=== PATIENT | female | born 1940 | race Caucasian/White ===

== ENCOUNTER 2019-03-02 13:49 | Inpatient (IN) | payer MEDICARE, MEDICAID ==
[~2019-03-02] VITALS: Ht 157.5 cm; Wt 79.9 kg
[2019-03-02 15:49] VITALS: BP 118/55
[2019-03-02] MEDS ORDERED: DEXTROSE 50%, 50ML SYRINGE IVPush PRN (17:00)
[2019-03-02] MEDS ORDERED: IBUPROFEN 600 MG TABLET PO PRN (17:00)
[2019-03-02] MEDS ORDERED: DEXTROSE 4 GM TAB.CHEW PO PRN (17:00)
[2019-03-02] MEDS ORDERED: GLUCAGON 1 MG IM PRN (17:00)
[2019-03-02] MEDS ORDERED: DOCUSATE 100 MG CAPSULE PO PRN (17:00)
[2019-03-02] MEDS ORDERED: ENALAPRILAT 1.25 MG/ML, 2ML IVPush PRN (17:00)
[2019-03-02] MEDS: PLEASE ENTER HEIGHT AND WEIGHT MC SCH ×2 (17:30→20:29)
[2019-03-02] MEDS: metFORMIN 500 MG TABLET PO SCH (17:41)
[2019-03-02] MEDS: PROPRANOLOL 10 MG TABLET PO SCH (17:41)
[2019-03-02 17:50] LABS: ALBUMIN 2.8 g/dL (3.4-5.0); ANION GAP 10 mmol/L (5-15); CALCIUM 8.3 mg/dL (8.5-10.1); CHLORIDE 110 mmol/L (98-107)
[2019-03-02 17:54] LABS: ALANINE AMINOTRANSFERASE 32 U/L (12-78); ALKALINE PHOSPHATASE 170 U/L (45-117); BILIRUBIN,TOTAL 2.3 mg/dL (0.2-1.0); CREATININE 1.04 mg/dL (0.55-1.02); TOTAL PROTEIN 6.2 g/dL (6.4-8.2)
[2019-03-02 19:13] LABS: MEAN CORPUSCULAR HGB CONC 31.6 g/dL (32.4-35.8); MEAN CORPUSCULAR VOLUME 75.8 fL (80-100); RED BLOOD COUNT 3.09 x10^6/uL (3.82-5.3); RED CELL DISTRIBUTION WIDTH 18.4 % (9.6-15.2)
[2019-03-02 19:23] LABS: INTERNATIONAL NORMALIZED RATIO 1.11 (0.93-1.1); PROTHROMBIN TIME 11.6 Seconds (9.6-11.5)
[2019-03-02 19:50] LABS: MEAN PLATELET VOLUME 12.2 fL (7.4-10.4); PLATELET COUNT 81 x10^3/uL (130-400)
[2019-03-02 20:03] LABS: MD YES
[2019-03-02 20:22] VITALS: BP 100/55
[2019-03-02] MEDS: SODIUM CHLORIDE FLUSH 10ML SYR IVF SCH (20:49)
[2019-03-02 20:52] LABS: EOS#(MANUAL) 0.05 x10^3/uL (0.0-0.4); EOS% (MANUAL) 1 % (1-7); LYMPH#(MANUAL) 0.42 x10^3/uL (1-3.4); LYMPHS% (MANUAL) 8 % (22-44); MONOS#(MANUAL) 0.42 x10^3/uL (0.3-2.7); MONOS% (MANUAL) 8 % (2-9); SEGS% (MANUAL) 83 % (42-75)
[2019-03-02 20:53] LABS: HYPOCHROMIA 1+; MICROCYTOSIS 1+; OVALOCYTES 1+; POLYCHROMASIA 1+
[2019-03-02 20:56] LABS: <PLATELET ESTIMATE> DECREASED; LARGE PLATELETS 1+; TARGET CELLS 1+
[2019-03-02] MEDS: INSULIN GLARGINE 100 UNITS/ML, PEN SQ-INSULIN SCH (22:02)
[2019-03-03] VITALS (9 sets, daily range): BP systolic 58–138; BP diastolic 46–74
[2019-03-03 06:27] LABS: CHLORIDE 114 mmol/L (98-107)
[2019-03-03] MEDS: PROPRANOLOL 10 MG TABLET PO SCH ×2 (06:27→16:45)
[2019-03-03 06:38] LABS: ALANINE AMINOTRANSFERASE 25 U/L (12-78); ALBUMIN 2.5 g/dL (3.4-5.0); ALKALINE PHOSPHATASE 130 U/L (45-117); ANION GAP 9 mmol/L (5-15); BILIRUBIN,TOTAL 1.6 mg/dL (0.2-1.0); CALCIUM 8.2 mg/dL (8.5-10.1); CREATININE 0.98 mg/dL (0.55-1.02); TOTAL PROTEIN 5.5 g/dL (6.4-8.2)
[2019-03-03 06:48] LABS: MEAN CORPUSCULAR HEMOGLOBIN 24.3 pg (27.0-34.8); MEAN CORPUSCULAR HGB CONC 32.3 g/dL (32.4-35.8); MEAN CORPUSCULAR VOLUME 75.2 fL (80-100); RED BLOOD COUNT 2.82 x10^6/uL (3.82-5.3); RED CELL DISTRIBUTION WIDTH 18.4 % (9.6-15.2)
[2019-03-03 07:26] LABS: CULTURE INDICATED? YES; MICROSCOPIC INDICATED
[2019-03-03 07:32] LABS: MEAN PLATELET VOLUME 12.7 fL (7.4-10.4); PLATELET COUNT 61 x10^3/uL (130-400)
[2019-03-03 07:36] LABS: BASOPHILS # (AUTO) 0.01 x10^3/uL (0-0.1); BASOPHILS % (AUTO) 0 % (0-1); EOSINOPHILS # (AUTO) 0.08 x10^3/uL (0-0.4); EOSINOPHILS % (AUTO) 2 % (1-7); LYMPHOCYTES # (AUTO) 0.67 x10^3/uL (1-3.4); LYMPHOCYTES % (AUTO) 21 % (22-44); MD SCAN; MONOCYTES # (AUTO) 0.38 x10^3/uL (0.2-0.8); MONOCYTES % (AUTO) 12 % (2-9); NEUTROPHILS # (AUTO) 2.14 x10^3/uL (1.8-6.8); NEUTROPHILS % (AUTO) 65 % (42-75)
[2019-03-03] MEDS: metFORMIN 500 MG TABLET PO SCH ×2 (07:38→16:45)
[2019-03-03] MEDS: PLEASE ENTER HEIGHT AND WEIGHT MC SCH (07:39)
[2019-03-03] MEDS: SODIUM CHLORIDE FLUSH 10ML SYR IVF SCH ×2 (07:39→20:37)
[2019-03-03] MEDS: HYDROCHLOROTHIAZIDE 12.5 MG CAPSULE PO SCH (07:39)
[2019-03-03] MEDS: CEFDINIR 300 MG CAPSULE PO SCH ×2 (10:30→20:36)
[2019-03-03] MEDS: POTASSIUM CHLORIDE 10% 20 MEQ/15 ML UDC PO SCH ×2 (10:30→20:37)
[2019-03-03] MEDS: INSULIN GLARGINE 100 UNITS/ML, PEN SQ-INSULIN SCH ×2 (10:59→20:36)
[2019-03-03] MEDS ORDERED: LIDOCAINE-MPF 1%, 5ML ONE (15:44)
[2019-03-03 16:36] LABS: OCCULT BLOOD POSITIVE (NEGATIVE)
[2019-03-04 00:20] VITALS: BP 101/62
[2019-03-04 05:27] VITALS: BP 117/62
[2019-03-04] MEDS: PROPRANOLOL 10 MG TABLET PO SCH ×2 (05:29→16:52)
[2019-03-04 05:46] LABS: MEAN CORPUSCULAR HEMOGLOBIN 24.3 pg (27.0-34.8); MEAN CORPUSCULAR HGB CONC 31.5 g/dL (32.4-35.8); MEAN CORPUSCULAR VOLUME 77.3 fL (80-100); PLATELET COUNT 54 x10^3/uL (130-400); RED BLOOD COUNT 2.99 x10^6/uL (3.82-5.3); RED CELL DISTRIBUTION WIDTH 18.6 % (9.6-15.2)
[2019-03-04 05:59] LABS: ALBUMIN 2.3 g/dL (3.4-5.0); ANION GAP 7 mmol/L (5-15); CALCIUM 8.1 mg/dL (8.5-10.1); CHLORIDE 114 mmol/L (98-107)
[2019-03-04 06:02] LABS: ALANINE AMINOTRANSFERASE 24 U/L (12-78); ALKALINE PHOSPHATASE 128 U/L (45-117); BILIRUBIN,TOTAL 1.6 mg/dL (0.2-1.0); CREATININE 0.93 mg/dL (0.55-1.02); TOTAL PROTEIN 5.1 g/dL (6.4-8.2)
[2019-03-04 06:23] LABS: BASOPHILS # (AUTO) 0.01 x10^3/uL (0-0.1); BASOPHILS % (AUTO) 0 % (0-1); EOSINOPHILS # (AUTO) 0.06 x10^3/uL (0-0.4); EOSINOPHILS % (AUTO) 3 % (1-7); LYMPHOCYTES # (AUTO) 0.66 x10^3/uL (1-3.4); LYMPHOCYTES % (AUTO) 28 % (22-44); MD SCAN; MONOCYTES # (AUTO) 0.26 x10^3/uL (0.2-0.8); MONOCYTES % (AUTO) 11 % (2-9); NEUTROPHILS # (AUTO) 1.33 x10^3/uL (1.8-6.8); NEUTROPHILS % (AUTO) 57 % (42-75)
[2019-03-04 08:05] VITALS: BP 149/78
[2019-03-04] MEDS: POTASSIUM CHLORIDE 10% 20 MEQ/15 ML UDC PO SCH ×2 (08:20→21:54)
[2019-03-04] MEDS: HYDROCHLOROTHIAZIDE 12.5 MG CAPSULE PO SCH (08:20)
[2019-03-04] MEDS: metFORMIN 500 MG TABLET PO SCH ×2 (08:21→16:53)
[2019-03-04] MEDS: INSULIN GLARGINE 100 UNITS/ML, PEN SQ-INSULIN SCH ×2 (08:21→21:00)
[2019-03-04] MEDS: CEFDINIR 300 MG CAPSULE PO SCH ×2 (08:21→21:54)
[2019-03-04] MEDS: SODIUM CHLORIDE FLUSH 10ML SYR IVF SCH ×2 (08:22→21:57)
[2019-03-04] MEDS ORDERED: GOLYTELY 4,000ML ORAL.SOL PO ONE ×2 (10:00→20:00)
[2019-03-04 12:24] VITALS: BP 131/51
[2019-03-04 16:50] VITALS: BP 119/87
[2019-03-04 18:33] VITALS: BP 131/48
[2019-03-04] MEDS ORDERED: INSULIN GLARGINE 100 UNITS/ML, PEN SQ-INSULIN ONE (22:00)
[2019-03-05] VITALS (8 sets, daily range): BP systolic 115–137; BP diastolic 46–76
[2019-03-05] MEDS: PROPRANOLOL 10 MG TABLET PO SCH ×2 (05:43→17:09)
[2019-03-05 05:58] LABS: CHLORIDE 112 mmol/L (98-107)
[2019-03-05 06:30] LABS: MEAN CORPUSCULAR HEMOGLOBIN 24.9 pg (27.0-34.8); MEAN CORPUSCULAR HGB CONC 32.1 g/dL (32.4-35.8); MEAN CORPUSCULAR VOLUME 77.7 fL (80-100); MEAN PLATELET VOLUME 11.5 fL (7.4-10.4); PLATELET COUNT 51 x10^3/uL (130-400); RED BLOOD COUNT 3.48 x10^6/uL (3.82-5.3); RED CELL DISTRIBUTION WIDTH 18.8 % (9.6-15.2)
[2019-03-05 06:32] LABS: ALANINE AMINOTRANSFERASE 30 U/L (12-78); ALBUMIN 2.8 g/dL (3.4-5.0); ALKALINE PHOSPHATASE 125 U/L (45-117); ANION GAP 7 mmol/L (5-15); BILIRUBIN,TOTAL 2.1 mg/dL (0.2-1.0); CALCIUM 8.4 mg/dL (8.5-10.1); CREATININE 0.91 mg/dL (0.55-1.02); TOTAL PROTEIN 5.7 g/dL (6.4-8.2)
[2019-03-05 07:07] LABS: BASOPHILS # (AUTO) 0.01 x10^3/uL (0-0.1); BASOPHILS % (AUTO) 0 % (0-1); EOSINOPHILS # (AUTO) 0.12 x10^3/uL (0-0.4); EOSINOPHILS % (AUTO) 4 % (1-7); LYMPHOCYTES # (AUTO) 0.81 x10^3/uL (1-3.4); LYMPHOCYTES % (AUTO) 25 % (22-44); MD SCAN; MONOCYTES # (AUTO) 0.26 x10^3/uL (0.2-0.8); MONOCYTES % (AUTO) 8 % (2-9); NEUTROPHILS # (AUTO) 1.98 x10^3/uL (1.8-6.8); NEUTROPHILS % (AUTO) 62 % (42-75)
[2019-03-05] MEDS: metFORMIN 500 MG TABLET PO SCH ×2 (07:11→17:10)
[2019-03-05] MEDS: INSULIN GLARGINE 100 UNITS/ML, PEN SQ-INSULIN SCH ×3 (07:11→20:51)
[2019-03-05] MEDS: HYDROCHLOROTHIAZIDE 12.5 MG CAPSULE PO SCH (07:11)
[2019-03-05] MEDS: CEFDINIR 300 MG CAPSULE PO SCH ×2 (07:11→20:50)
[2019-03-05] MEDS ORDERED: PROPOFOL 10 MG/ML, 20ML ONE (08:02)
[2019-03-05] MEDS: SODIUM CHLORIDE FLUSH 10ML SYR IVF SCH ×2 (09:00→20:51)
[2019-03-05] MEDS ORDERED: ONDANSETRON 2MG/ML, 2ML IV PRN (09:30)
[2019-03-05] MEDS ORDERED: ONDANSETRON ODT 8 MG PO PRN (09:30)
[2019-03-05] MEDS ORDERED: FENTANYL PF 100 MCG/2ML IV PRN (09:30)
[2019-03-05] MEDS ORDERED: OXYcodone 5 MG/5 ML ORAL.SOL UDC PO PRN (09:30)
[2019-03-06 01:32] VITALS: BP 114/59
[2019-03-06] MEDS: PROPRANOLOL 10 MG TABLET PO SCH (05:33)
[2019-03-06 06:13] LABS: MEAN CORPUSCULAR HEMOGLOBIN 24.8 pg (27.0-34.8); MEAN CORPUSCULAR HGB CONC 31.8 g/dL (32.4-35.8); MEAN PLATELET VOLUME 11.5 fL (7.4-10.4); PLATELET COUNT 58 x10^3/uL (130-400); RED BLOOD COUNT 3.14 x10^6/uL (3.82-5.3)
[2019-03-06 06:15] LABS: ALANINE AMINOTRANSFERASE 29 U/L (12-78); ALBUMIN 2.4 g/dL (3.4-5.0); ANION GAP 6 mmol/L (5-15); CALCIUM 7.8 mg/dL (8.5-10.1); CHLORIDE 112 mmol/L (98-107); CREATININE 0.89 mg/dL (0.55-1.02)
[2019-03-06 06:18] LABS: ALKALINE PHOSPHATASE 120 U/L (45-117); BILIRUBIN,TOTAL 1.3 mg/dL (0.2-1.0); TOTAL PROTEIN 5.1 g/dL (6.4-8.2)
[2019-03-06 06:41] LABS: BASOPHILS # (AUTO) 0.01 x10^3/uL (0-0.1); BASOPHILS % (AUTO) 1 % (0-1); EOSINOPHILS # (AUTO) 0.05 x10^3/uL (0-0.4); EOSINOPHILS % (AUTO) 2 % (1-7); LYMPHOCYTES # (AUTO) 0.57 x10^3/uL (1-3.4); LYMPHOCYTES % (AUTO) 23 % (22-44); MD MORPH REVIEW ONLY; MONOCYTES # (AUTO) 0.33 x10^3/uL (0.2-0.8); MONOCYTES % (AUTO) 13 % (2-9); NEUTROPHILS # (AUTO) 1.52 x10^3/uL (1.8-6.8); NEUTROPHILS % (AUTO) 61 % (42-75)
[2019-03-06 06:42] LABS: <PLATELET ESTIMATE> DECREASED; ANISOCYTOSIS 1+; HYPOCHROMIA 1+; LARGE PLATELETS 1+; MICROCYTOSIS 1+; OVALOCYTES 1+; POLYCHROMASIA 1+
[2019-03-06] MEDS ORDERED: OXYcodone 5 MG/5 ML ORAL.SOL UDC PO PRN (07:00)
[2019-03-06] MEDS: CEFDINIR 300 MG CAPSULE PO SCH ×2 (08:13→20:44)
[2019-03-06] MEDS: HYDROCHLOROTHIAZIDE 12.5 MG CAPSULE PO SCH (08:14)
[2019-03-06] MEDS: metFORMIN 500 MG TABLET PO SCH ×2 (08:14→17:16)
[2019-03-06 08:15] VITALS: BP 124/74
[2019-03-06] MEDS: INSULIN GLARGINE 100 UNITS/ML, PEN SQ-INSULIN SCH ×2 (08:15→21:00)
[2019-03-06] MEDS: SODIUM CHLORIDE FLUSH 10ML SYR IVF SCH ×2 (09:00→20:44)
[2019-03-06] MEDS: SPIRONOLACTONE 100 MG TABLET PO SCH (11:15)
[2019-03-06] MEDS: SUCRALFATE 1 GM/10 ML UDC PO SCH ×3 (11:15→20:44)
[2019-03-06] MEDS: FUROSEMIDE 40 MG TABLET PO SCH (11:15)
[2019-03-06 14:10] VITALS: BP 104/47
[2019-03-06] MEDS: OMEPRAZOLE 20 MG CAPSULE.DR PO SCH (16:24)
[2019-03-06] MEDS: FERROUS GLUCONATE 324 MG TABLET PO SCH (17:17)
[2019-03-06 20:33] VITALS: BP 112/70
[2019-03-07 02:34] VITALS: BP 102/59
[2019-03-07 06:39] VITALS: BP 100/64
[2019-03-07] MEDS: OMEPRAZOLE 20 MG CAPSULE.DR PO SCH (06:41)
[2019-03-07] MEDS: SUCRALFATE 1 GM/10 ML UDC PO SCH ×2 (06:41→11:46)
[2019-03-07] MEDS: CEFDINIR 300 MG CAPSULE PO SCH (07:42)
[2019-03-07] MEDS: SPIRONOLACTONE 100 MG TABLET PO SCH (07:43)
[2019-03-07] MEDS: FUROSEMIDE 40 MG TABLET PO SCH (07:43)
[2019-03-07] MEDS: metFORMIN 500 MG TABLET PO SCH (07:43)
[2019-03-07] MEDS: FERROUS GLUCONATE 324 MG TABLET PO SCH (07:43)
[2019-03-07] MEDS: SODIUM CHLORIDE FLUSH 10ML SYR IVF SCH (07:44)
[2019-03-07 08:37] LABS: ALANINE AMINOTRANSFERASE 28 U/L (12-78); ALBUMIN 2.7 g/dL (3.4-5.0); ANION GAP 8 mmol/L (5-15); CALCIUM 8.2 mg/dL (8.5-10.1); CHLORIDE 110 mmol/L (98-107); CREATININE 1.11 mg/dL (0.55-1.02)
[2019-03-07 08:39] LABS: ALKALINE PHOSPHATASE 120 U/L (45-117); BILIRUBIN,TOTAL 1.8 mg/dL (0.2-1.0); TOTAL PROTEIN 5.6 g/dL (6.4-8.2)
[2019-03-07] MEDS: INSULIN GLARGINE 100 UNITS/ML, PEN SQ-INSULIN SCH (09:00)
[2019-03-07 09:08] LABS: BASOPHILS # (AUTO) 0.01 x10^3/uL (0-0.1); BASOPHILS % (AUTO) 0 % (0-1); EOSINOPHILS # (AUTO) 0.05 x10^3/uL (0-0.4); EOSINOPHILS % (AUTO) 1 % (1-7); LYMPHOCYTES % (AUTO) 12 % (22-44); MD SCAN; MEAN CORPUSCULAR HEMOGLOBIN 24.2 pg (27.0-34.8); MEAN CORPUSCULAR HGB CONC 31.2 g/dL (32.4-35.8); MEAN CORPUSCULAR VOLUME 77.8 fL (80-100); MEAN PLATELET VOLUME 11.9 fL (7.4-10.4); MONOCYTES # (AUTO) 0.41 x10^3/uL (0.2-0.8); MONOCYTES % (AUTO) 10 % (2-9); NEUTROPHILS # (AUTO) 3.11 x10^3/uL (1.8-6.8); NEUTROPHILS % (AUTO) 76 % (42-75); PLATELET COUNT 63 x10^3/uL (130-400); RED BLOOD COUNT 3.44 x10^6/uL (3.82-5.3); RED CELL DISTRIBUTION WIDTH 19.2 % (9.6-15.2)
[2019-03-07] MEDS ORDERED: POTASSIUM CHLORIDE 10% 40 MEQ/30 ML UDC PO ONE (11:00)
[2019-03-07 12:53] VITALS: BP 99/63
[2019-03-07] MEDS ORDERED: SUCR1ORA5 PO (13:29)
[2019-03-07] MEDS ORDERED: FURO40TA6 PO (13:29)
[2019-03-07] MEDS ORDERED: FERR325T16 PO (13:29)
[2019-03-07] MEDS ORDERED: OMEP-110 PO (13:29)
[2019-03-07] MEDS ORDERED: SPIR100T PO (13:29)
[2019-03-07 16:40] VITALS: BP 118/72
== END 2019-03-07 17:00 | disposition home health service (06) | DRG 432 ==
LOC: 4NOR 15:31 → DCLOUNGE 03-07 16:49
PROVIDERS: ADMIT Family Medicine; ATTEND Family Medicine
PROC: 0W9G3ZZ Drainage of Peritoneal Cavity, Percutaneous Approach (ICD-10-PCS; principal; 2019-03-03)
PROC: 30233R1 Transfusion of Nonautologous Platelets into Peripheral Vein, Percutaneous Approach (ICD-10-PCS; 2019-03-03)
PROC: 30233N1 Transfusion of Nonautologous Red Blood Cells into Peripheral Vein, Percutaneous Approach (ICD-10-PCS; 2019-03-03)
PROC: 06L38CZ Occlusion of Esophageal Vein with Extraluminal Device, Via Natural or Artificial Opening Endoscopic (ICD-10-PCS; 2019-03-05)
PROC: 0DBK8ZZ Excision of Ascending Colon, Via Natural or Artificial Opening Endoscopic (ICD-10-PCS; 2019-03-05)
PROC: 0DBL8ZZ Excision of Transverse Colon, Via Natural or Artificial Opening Endoscopic (ICD-10-PCS; 2019-03-05)
PROC: 0DBN8ZZ Excision of Sigmoid Colon, Via Natural or Artificial Opening Endoscopic (ICD-10-PCS; 2019-03-05)
PROC: 0DBM8ZZ Excision of Descending Colon, Via Natural or Artificial Opening Endoscopic (ICD-10-PCS; 2019-03-05)
PROC: 0DBH8ZZ Excision of Cecum, Via Natural or Artificial Opening Endoscopic (ICD-10-PCS; 2019-03-05)
DX: K74.60 Unspecified cirrhosis of liver (principal); G93.41 Metabolic encephalopathy; N39.0 Urinary tract infection, site not specified; R18.8 Other ascites; D61.818 Other pancytopenia; I85.00 Esophageal varices without bleeding; K76.6 Portal hypertension; D50.9 Iron deficiency anemia, unspecified; E11.9 Type 2 diabetes mellitus without complications; I11.0 Hypertensive heart disease with heart failure; I27.20 Pulmonary hypertension, unspecified; I50.9 Heart failure, unspecified; K31.89 Other diseases of stomach and duodenum; K59.00 Constipation, unspecified; Z66 Do not resuscitate; Z79.4 Long term (current) use of insulin; Z87.891 Personal history of nicotine dependence; Z90.710 Acquired absence of both cervix and uterus; D12.0 Benign neoplasm of cecum; Z82.49 Family history of ischemic heart disease and other diseases of the circulatory system; D12.2 Benign neoplasm of ascending colon; D12.3 Benign neoplasm of transverse colon; D12.4 Benign neoplasm of descending colon; D12.5 Benign neoplasm of sigmoid colon; K57.30 Diverticulosis of large intestine without perforation or abscess without bleeding
CPT/HCPCS: 0399T; 36415; 49083; 74018; 76700; 76705; 80053; 81001; 82042; 82140; 82272; 82728; 82962; 83540; 83550; 83735; 83880; 84100; 84466; 85025; 85610; 86705; 86706; 86803; 86850; 86900; 86923; 87077; 87086; 87186; 87340; 88112; 88305; 90656; 93306; G0378; J2704; J1815; P9016; P9035

== ENCOUNTER 2019-03-10 15:41 | Inpatient (IN) | payer MEDICARE, MEDICAID ==
[~2019-03-10] VITALS: Ht 157.5 cm; Wt 83.1 kg
[~2019-03-10 15:41] MED LIST: FERR325T16 PO; FURO40TA6 PO; OMEP-110 PO; SPIR100T PO; SUCR1ORA5 PO
--- NOTE | 2019-03-10 16:12 | NUR ---
PA studentJordana, at bedside to evaluate pt.
--- NOTE | 2019-03-10 16:20 | NUR ---
Pt cleaned after stooling in bed. Pt changed into hospital gown. Pt's daughter at bedside with pt.
--- NOTE | 2019-03-10 16:22 | NUR ---
Barrier cream applied to perineal area after cleansing. Pt reports some relief, states that she needs to have another BM.
--- NOTE | 2019-03-10 16:25 | NUR ---
Pt rapidly ambulated to bathroom, stool dripping as she ambulated. Hat in toilet for stool collection, urine sample cup in hand.
[2019-03-10 16:26] LABS: MEAN CORPUSCULAR HEMOGLOBIN 24.9 pg (27.0-34.8); MEAN CORPUSCULAR HGB CONC 32.2 g/dL (32.4-35.8); MEAN CORPUSCULAR VOLUME 77.5 fL (80-100); MEAN PLATELET VOLUME 12.1 fL (7.4-10.4); PLATELET COUNT 111 x10^3/uL (130-400); RED BLOOD COUNT 3.85 x10^6/uL (3.82-5.3); RED CELL DISTRIBUTION WIDTH 20.1 % (9.6-15.2)
[2019-03-10 16:34] LABS: ALBUMIN 2.8 g/dL (3.4-5.0); ANION GAP 11 mmol/L (5-15); CALCIUM 8.2 mg/dL (8.5-10.1); CHLORIDE 102 mmol/L (98-107)
[2019-03-10 16:38] LABS: ALANINE AMINOTRANSFERASE 24 U/L (12-78); ALKALINE PHOSPHATASE 138 U/L (45-117); BILIRUBIN,TOTAL 2.7 mg/dL (0.2-1.0); CREATININE 1.47 mg/dL (0.55-1.02); TOTAL PROTEIN 6.2 g/dL (6.4-8.2)
[2019-03-10 16:45] LABS: MD YES
[2019-03-10 16:49] LABS: BAND#(MANUAL) 0.39 x10^3/uL; BANDS%(MANUAL) 3 % (0-7); EOS#(MANUAL) 0.13 x10^3/uL (0.0-0.4); EOS% (MANUAL) 1 % (1-7); LYMPH#(MANUAL) 0.77 x10^3/uL (1-3.4); LYMPHS% (MANUAL) 6 % (22-44); MONOS% (MANUAL) 7 % (2-9); SEG#(MANUAL) 10.71 x10^3/uL (1.8-6.8); SEGS% (MANUAL) 83 % (42-75)
[2019-03-10 16:52] LABS: <PLATELET ESTIMATE> DECREASED; HYPOCHROMIA 1+; MICROCYTOSIS 1+; OVALOCYTES 1+; POLYCHROMASIA 1+
[2019-03-10 16:53] LABS: LARGE PLATELETS 1+
[2019-03-10] MEDS ORDERED: FENTANYL PF 100 MCG/2ML IM ONE (17:00)
--- NOTE | 2019-03-10 17:20 | NUR ---
CONTACT PRECAUTIONS PLACED D/T DIARRHEA
--- NOTE | 2019-03-10 17:40 | NUR ---
PATIENT UP TO BEDSIDE COMMODE FOR BM. SMALL AMOUNT OF MUCOUSY STOOL OBTAINED AND SENT TO LAB. FULL PERICARE PERFORMED W/ CALMINE LOTION APPLICATION ONCE BACK IN BED PATIENT STRAIGHT CATHETERIZED FOR SAMPLE-LEFT IN A MOMENT TO LET HER DRAIN- 750ML OF URINE OBTAINED
[2019-03-10 17:58] LABS: MICROSCOPIC NOT IND
--- NOTE | 2019-03-10 18:08 | NUR ---
TO CT SCAN
[2019-03-10 18:15] LABS: CULTURE INDICATED? NO
[2019-03-10] MEDS ORDERED: AMPICILLIN/SULBACTAM 3 GM in SODIUM CHLORIDE 0.9% 100 ML IV ONE (18:30)
--- NOTE | 2019-03-10 18:30 | NUR ---
PATIENT RESTING COMFORTABLY ON GURNEY. HAS NOT HAD AN ADDITIONAL BM IN THE LAST HOUR. VSS ON NIBO/POX REPORTS PAIN/NAUSEA 12/02 AT THIS TIME CALL JAMIL IN HAND/SIDE RAILS UP UPDATED ON ESTIMATED POC (LIKELY ADMISSION/NPO AT THIS TIME)
[2019-03-10 18:33] LABS: CLOSTRIDIUM DIFFICILE ANTIGEN POSITIVE; CLOSTRIDIUM DIFFICILE TOXIN POSITIVE (Negative)
--- NOTE | 2019-03-10 19:10 | NUR ---
SPOKE TO ED PROVIDER IN REGARD TO NEED FOR IV FLUIDS/ELECTROLYTES/ IF ADDITIONAL ABX NEEDED FOR NEW CDIFF RESULTS. PLAN TO REPLETE ELECTROLYTES/1 L NS AND STICK TO UNASYN FOR THE MOMENT VITALS UPDATED PATIENT/FAMILY UPDATED ON POC CALL JAMIL IN HAND/SIDE RAILS UP/ GIVEN ADDITIONAL BLANKET
[2019-03-10] MEDS ORDERED: SODIUM CHLORIDE 0.9% 1,000 ML IV ONE (19:30)
[2019-03-10] MEDS ORDERED: POTASSIUM CHLORIDE 20 MEQ in SODIUM CHLORIDE 0.9% 250 ML IV ONE ×2 (19:30→23:30)
--- NOTE | 2019-03-10 19:59 | NUR ---
andrew lewis (daughter) [phone] POA Please call w/ any updates
[2019-03-10] MEDS ORDERED: HEPARIN 5,000 UNITS/ML, 1ML SQ SCH (20:00)
[2019-03-10] MEDS ORDERED: SODIUM CHLORIDE 0.9% 1,000ML IVBOLUS ONE (20:00)
[2019-03-10] MEDS ORDERED: ACETAMINOPHEN 325 MG TABLET PO PRN (20:00)
[2019-03-10] MEDS ORDERED: PHARMACY MAY ADJ FOR RENAL FX MC PRN (20:00)
--- NOTE | 2019-03-10 20:00 | NUR ---
Patient transported with unasyn/ns infusing (stop times deferred) Potassium bag just received from pharmacy. Hung on [employer] IV pole for infusion once up to the floor
[2019-03-10 20:24] VITALS: BP 138/66
[2019-03-10] MEDS: SUCRALFATE 1 GM/10 ML UDC PO SCH (23:16)
[2019-03-10] MEDS ORDERED: GLUCAGON 1 MG IM PRN (23:30)
[2019-03-10] MEDS ORDERED: DEXTROSE 4 GM TAB.CHEW PO PRN (23:30)
[2019-03-10] MEDS ORDERED: DEXTROSE 50%, 50ML SYRINGE IVPush PRN (23:30)
[2019-03-11 00:52] VITALS: BP 122/58
[2019-03-11] MEDS: AMPICILLIN/SULBACTAM 3 GM in SODIUM CHLORIDE 0.9% 100 ML IV SCH ×2 (01:47→12:31)
[2019-03-11] MEDS: LACTATED RINGERS 1,000 ML IV SCH ×3 (01:47→16:51)
[2019-03-11] MEDS: OMEPRAZOLE 20 MG CAPSULE.DR PO SCH ×2 (05:38→17:00)
[2019-03-11 05:50] LABS: CHLORIDE 109 mmol/L (98-107)
[2019-03-11 06:14] LABS: ANION GAP 9 mmol/L (5-15); CALCIUM 7.8 mg/dL (8.5-10.1); CREATININE 1.26 mg/dL (0.55-1.02)
[2019-03-11] MEDS: VANCOMYCIN 50 MG/ML ORAL SUSP PO SCH ×3 (07:00→18:28)
[2019-03-11] MEDS: INSULIN LISPRO 100 UNITS/ML, PEN SQ-INSULIN SCH ×4 (07:00→21:40)
[2019-03-11 07:15] VITALS: BP 119/60
[2019-03-11 07:29] LABS: BASOPHILS # (AUTO) 0.03 x10^3/uL (0-0.1); BASOPHILS % (AUTO) 1 % (0-1); EOSINOPHILS # (AUTO) 0.07 x10^3/uL (0-0.4); EOSINOPHILS % (AUTO) 1 % (1-7); LYMPHOCYTES # (AUTO) 0.74 x10^3/uL (1-3.4); LYMPHOCYTES % (AUTO) 12 % (22-44); MD SCAN; MEAN CORPUSCULAR HEMOGLOBIN 24.4 pg (27.0-34.8); MEAN CORPUSCULAR HGB CONC 31.3 g/dL (32.4-35.8); MEAN CORPUSCULAR VOLUME 77.9 fL (80-100); MEAN PLATELET VOLUME 11.2 fL (7.4-10.4); MONOCYTES # (AUTO) 0.65 x10^3/uL (0.2-0.8); MONOCYTES % (AUTO) 11 % (2-9); NEUTROPHILS # (AUTO) 4.59 x10^3/uL (1.8-6.8); NEUTROPHILS % (AUTO) 76 % (42-75); PLATELET COUNT 67 x10^3/uL (130-400); RED BLOOD COUNT 3.44 x10^6/uL (3.82-5.3); RED CELL DISTRIBUTION WIDTH 20.3 % (9.6-15.2)
[2019-03-11] MEDS ORDERED: POTASSIUM CHLORIDE 40 MEQ in SODIUM CHLORIDE 0.9% 500 ML IV ONE ×2 (08:00→13:00)
[2019-03-11] MEDS: SUCRALFATE 1 GM/10 ML UDC PO SCH ×4 (08:58→20:38)
[2019-03-11] MEDS: FERROUS GLUCONATE 324 MG TABLET PO SCH ×2 (08:58→16:50)
[2019-03-11] MEDS: SPIRONOLACTONE 100 MG TABLET PO SCH (08:58)
[2019-03-11] MEDS: SODIUM CHLORIDE FLUSH 10ML SYR IVF SCH ×2 (09:00→21:41)
[2019-03-11] MEDS ORDERED: HEMORRHOIDAL OINT, 28 GM (PREP H) RC PRN (09:00)
[2019-03-11] MEDS: FUROSEMIDE 40 MG TABLET PO SCH (12:00)
[2019-03-11 12:59] VITALS: BP 131/54
[2019-03-11 19:15] VITALS: BP 135/51
[2019-03-11] MEDS ORDERED: AMPICILLIN/SULBACTAM 3 GM in SODIUM CHLORIDE 0.9% 100 ML IV SCH (20:00)
[2019-03-11 20:30] LABS: ANION GAP 8 mmol/L (5-15); CALCIUM 7.7 mg/dL (8.5-10.1); CHLORIDE 111 mmol/L (98-107); CREATININE 1.21 mg/dL (0.55-1.02)
[2019-03-11] MEDS: OXYcodone IR 5MG TABLET PO PRN (20:38)
[2019-03-12] MEDS ORDERED: HYDROCORTISONE/PRAMOXINE CRM 1-1%, 30GM TP PRN (00:30)
[2019-03-12] MEDS: OXYcodone IR 5MG TABLET PO PRN ×4 (00:36→22:02)
[2019-03-12 00:49] VITALS: BP 124/56
[2019-03-12] MEDS: VANCOMYCIN 50 MG/ML ORAL SUSP PO SCH ×5 (00:57→23:55)
[2019-03-12] MEDS: LACTATED RINGERS 1,000 ML IV SCH ×3 (00:59→21:42)
[2019-03-12 05:47] LABS: MEAN CORPUSCULAR HEMOGLOBIN 24.8 pg (27.0-34.8); MEAN CORPUSCULAR HGB CONC 31.9 g/dL (32.4-35.8); MEAN CORPUSCULAR VOLUME 77.8 fL (80-100); RED CELL DISTRIBUTION WIDTH 20.3 % (9.6-15.2)
[2019-03-12 05:52] LABS: CHLORIDE 112 mmol/L (98-107)
[2019-03-12 06:15] LABS: ALANINE AMINOTRANSFERASE 20 U/L (12-78); ALBUMIN 2.2 g/dL (3.4-5.0); ALKALINE PHOSPHATASE 103 U/L (45-117); ANION GAP 7 mmol/L (5-15); BILIRUBIN,TOTAL 1.1 mg/dL (0.2-1.0); CALCIUM 7.5 mg/dL (8.5-10.1); CREATININE 0.97 mg/dL (0.55-1.02)
[2019-03-12 06:26] LABS: BASOPHILS # (AUTO) 0.01 x10^3/uL (0-0.1); BASOPHILS % (AUTO) 0 % (0-1); EOSINOPHILS % (AUTO) 3 % (1-7); LYMPHOCYTES % (AUTO) 18 % (22-44); MD SCAN; MEAN PLATELET VOLUME 11.2 fL (7.4-10.4); MONOCYTES # (AUTO) 0.44 x10^3/uL (0.2-0.8); MONOCYTES % (AUTO) 11 % (2-9); NEUTROPHILS # (AUTO) 2.64 x10^3/uL (1.8-6.8); NEUTROPHILS % (AUTO) 68 % (42-75); PLATELET COUNT 52 x10^3/uL (130-400)
[2019-03-12] MEDS: SUCRALFATE 1 GM/10 ML UDC PO SCH ×4 (06:49→21:44)
[2019-03-12] MEDS: OMEPRAZOLE 20 MG CAPSULE.DR PO SCH ×2 (06:49→17:49)
[2019-03-12 06:58] VITALS: BP 135/57
[2019-03-12] MEDS: INSULIN LISPRO 100 UNITS/ML, PEN SQ-INSULIN SCH ×4 (07:00→21:49)
[2019-03-12] MEDS: SPIRONOLACTONE 100 MG TABLET PO SCH (08:18)
[2019-03-12] MEDS: FERROUS GLUCONATE 324 MG TABLET PO SCH ×2 (08:18→17:49)
[2019-03-12] MEDS: FUROSEMIDE 40 MG TABLET PO SCH (08:18)
[2019-03-12] MEDS: SODIUM CHLORIDE FLUSH 10ML SYR IVF SCH ×2 (08:20→21:44)
[2019-03-12 13:50] VITALS: BP 155/52
[2019-03-12 18:31] VITALS: BP 125/62
[2019-03-12] MEDS ORDERED: POTASSIUM CHLORIDE 20 MEQ TAB.ER.PRT PO ONE (23:30)
[2019-03-12] MEDS ORDERED: POTASSIUM CHLORIDE 20 MEQ in SODIUM CHLORIDE 0.9% 250 ML IV ONE (23:30)
[2019-03-13 00:02] VITALS: BP 139/58
[2019-03-13 05:46] LABS: MEAN CORPUSCULAR HEMOGLOBIN 24.5 pg (27.0-34.8); MEAN CORPUSCULAR HGB CONC 31.3 g/dL (32.4-35.8); MEAN CORPUSCULAR VOLUME 78.2 fL (80-100); MEAN PLATELET VOLUME 12.2 fL (7.4-10.4); PLATELET COUNT 59 x10^3/uL (130-400); RED BLOOD COUNT 3.27 x10^6/uL (3.82-5.3); RED CELL DISTRIBUTION WIDTH 20.2 % (9.6-15.2)
[2019-03-13 05:59] LABS: CHLORIDE 111 mmol/L (98-107)
[2019-03-13] MEDS: OMEPRAZOLE 20 MG CAPSULE.DR PO SCH ×2 (06:11→16:09)
[2019-03-13] MEDS: LACTATED RINGERS 1,000 ML IV SCH (06:11)
[2019-03-13] MEDS: VANCOMYCIN 50 MG/ML ORAL SUSP PO SCH ×3 (06:11→17:30)
[2019-03-13] MEDS: SUCRALFATE 1 GM/10 ML UDC PO SCH ×4 (06:11→20:39)
[2019-03-13 06:17] LABS: ALANINE AMINOTRANSFERASE 19 U/L (12-78); ALBUMIN 2.3 g/dL (3.4-5.0); ALKALINE PHOSPHATASE 112 U/L (45-117); ANION GAP 6 mmol/L (5-15); BILIRUBIN,TOTAL 0.9 mg/dL (0.2-1.0); CALCIUM 7.8 mg/dL (8.5-10.1); CREATININE 0.95 mg/dL (0.55-1.02); TOTAL PROTEIN 4.9 g/dL (6.4-8.2)
[2019-03-13 06:21] LABS: MD YES
[2019-03-13 06:27] LABS: ANISOCYTOSIS 2+; EOS#(MANUAL) 0.14 x10^3/uL (0.0-0.4); EOS% (MANUAL) 4 % (1-7); LYMPH#(MANUAL) 0.22 x10^3/uL (1-3.4); LYMPHS% (MANUAL) 6 % (22-44); MICROCYTOSIS 1+; MONOS#(MANUAL) 0.22 x10^3/uL (0.3-2.7); MONOS% (MANUAL) 6 % (2-9); SEG#(MANUAL) 3.02 x10^3/uL (1.8-6.8); SEGS% (MANUAL) 84 % (42-75)
[2019-03-13 06:28] LABS: <PLATELET ESTIMATE> DECREASED; <PLT MORPHOLOGY> NORMAL PLT MORPH; ECHINOCYTES 1+; HYPOCHROMIA 1+; LARGE PLATELETS 1+; OVALOCYTES 1+
[2019-03-13] MEDS: INSULIN LISPRO 100 UNITS/ML, PEN SQ-INSULIN SCH ×4 (07:18→20:40)
[2019-03-13 07:29] VITALS: BP 121/55
[2019-03-13] MEDS: SPIRONOLACTONE 100 MG TABLET PO SCH (09:03)
[2019-03-13] MEDS: FUROSEMIDE 40 MG TABLET PO SCH (09:03)
[2019-03-13] MEDS: SODIUM CHLORIDE FLUSH 10ML SYR IVF SCH ×2 (09:03→20:41)
[2019-03-13] MEDS: FERROUS GLUCONATE 324 MG TABLET PO SCH ×2 (09:03→17:29)
[2019-03-13 12:36] VITALS: BP 149/60
[2019-03-13] MEDS ORDERED: LIDOCAINE-MPF 1%, 5ML ONE (13:55)
[2019-03-13] MEDS: OXYcodone IR 5MG TABLET PO PRN ×2 (16:10→20:38)
[2019-03-13 19:37] VITALS: BP 111/59
[2019-03-14] MEDS: VANCOMYCIN 50 MG/ML ORAL SUSP PO SCH ×4 (01:16→18:28)
[2019-03-14 01:17] VITALS: BP 120/48
[2019-03-14] MEDS: OMEPRAZOLE 20 MG CAPSULE.DR PO SCH ×2 (06:37→16:56)
[2019-03-14 08:12] VITALS: BP 140/62
[2019-03-14] MEDS: SODIUM CHLORIDE FLUSH 10ML SYR IVF SCH ×2 (08:14→20:43)
[2019-03-14] MEDS: FUROSEMIDE 40 MG TABLET PO SCH (08:14)
[2019-03-14] MEDS: SPIRONOLACTONE 100 MG TABLET PO SCH (08:14)
[2019-03-14] MEDS: SUCRALFATE 1 GM/10 ML UDC PO SCH ×4 (08:14→20:43)
[2019-03-14] MEDS: FERROUS GLUCONATE 324 MG TABLET PO SCH ×2 (08:14→16:58)
[2019-03-14] MEDS: INSULIN LISPRO 100 UNITS/ML, PEN SQ-INSULIN SCH ×4 (08:55→20:43)
[2019-03-14] MEDS: OXYcodone IR 5MG TABLET PO PRN ×2 (08:55→18:28)
[2019-03-14 14:50] VITALS: BP 117/82
[2019-03-14 16:11] VITALS: BP 117/84
[2019-03-14 18:25] VITALS: BP 127/62
[2019-03-14 19:06] VITALS: BP 127/57
[2019-03-15] MEDS: VANCOMYCIN 50 MG/ML ORAL SUSP PO SCH ×4 (00:08→17:23)
[2019-03-15 01:37] VITALS: BP 127/54
[2019-03-15] MEDS: SUCRALFATE 1 GM/10 ML UDC PO SCH ×3 (06:17→17:23)
[2019-03-15] MEDS: OMEPRAZOLE 20 MG CAPSULE.DR PO SCH ×2 (06:20→17:22)
[2019-03-15 06:55] VITALS: BP 125/57
[2019-03-15] MEDS: SPIRONOLACTONE 100 MG TABLET PO SCH (09:22)
[2019-03-15] MEDS: SODIUM CHLORIDE FLUSH 10ML SYR IVF SCH (09:22)
[2019-03-15] MEDS: OXYcodone IR 5MG TABLET PO PRN ×2 (09:22→18:01)
[2019-03-15] MEDS: FUROSEMIDE 40 MG TABLET PO SCH (09:22)
[2019-03-15] MEDS: FERROUS GLUCONATE 324 MG TABLET PO SCH ×2 (09:22→17:22)
[2019-03-15] MEDS: INSULIN LISPRO 100 UNITS/ML, PEN SQ-INSULIN SCH ×3 (09:28→17:26)
[2019-03-15 12:43] VITALS: BP 127/63
[2019-03-15] MEDS ORDERED: VANC1VIA3 PO (16:16)
[2019-03-15] MEDS ORDERED: HYDR30CR33 TP (16:16)
== END 2019-03-15 18:11 | DRG 871 ==
LOC: ED 17:33 → EDIP 17:34 → ED 17:40 → 3NE 20:19 → 5SO 22:57
PROVIDERS: ADMIT Hospitalist; ATTEND Hospitalist
DX: A41.9 Sepsis, unspecified organism (principal); E43 Unspecified severe protein-calorie malnutrition; A04.72 Enterocolitis due to Clostridium difficile, not specified as recurrent; N17.9 Acute kidney failure, unspecified; R18.8 Other ascites; K61.0 Anal abscess; N39.0 Urinary tract infection, site not specified; I85.10 Secondary esophageal varices without bleeding; R65.20 Severe sepsis without septic shock; K75.81 Nonalcoholic steatohepatitis (NASH); Z68.33 Body mass index [BMI] 33.0-33.9, adult; D53.9 Nutritional anemia, unspecified; K62.89 Other specified diseases of anus and rectum; D69.59 Other secondary thrombocytopenia; E11.9 Type 2 diabetes mellitus without complications; E87.6 Hypokalemia; E87.70 Fluid overload, unspecified; K72.90 Hepatic failure, unspecified without coma; K74.60 Unspecified cirrhosis of liver; Z79.4 Long term (current) use of insulin; Z87.891 Personal history of nicotine dependence; I25.2 Old myocardial infarction
CPT/HCPCS: 36415; 49083; 72192; 80048; 80053; 81003; 82962; 83605; 83735; 85025; 87040; 87324; 89055; 99285; G0378; J0295; J1644; J3370; J3480; J1815; J7030; J7040; J7050; J7120

== ENCOUNTER 2019-06-24 09:50 | Inpatient (IN) | payer MEDICARE, MEDICAID ==
[~2019-06-24] VITALS: Ht 154.9 cm; Wt 69.2 kg
[~2019-06-24 09:50] MED LIST changes: +HYDR30CR33 TP; +VANC1VIA3 PO
[2019-06-24] MEDS ORDERED: SODIUM CHLORIDE 0.9% 1,000ML IVBOLUS ONE (10:30)
[2019-06-24] MEDS ORDERED: OMEP-110 PO (10:48)
[2019-06-24] MEDS ORDERED: HYDROCHLOROTH12.5 MG PO (10:50)
[2019-06-24] MEDS ORDERED: INSU100V8 SQ-INSULIN (10:51)
[2019-06-24] MEDS ORDERED: PROP10TA16 PO (10:52)
[2019-06-24] MEDS ORDERED: METF500T17 PO (10:53)
[2019-06-24] MEDS ORDERED: GLIP10TA13 PO (10:54)
[2019-06-24 11:12] LABS: PH, VENOUS 7.437 pH (7.320-7.420)
[2019-06-24 11:14] LABS: FIO2 ROOM AIR %
[2019-06-24 11:19] LABS: MEAN CORPUSCULAR HEMOGLOBIN 27.4 pg (27.0-34.8); MEAN CORPUSCULAR HGB CONC 32.6 g/dL (32.4-35.8); MEAN PLATELET VOLUME 10.9 fL (7.4-10.4); PLATELET COUNT 91 x10^3/uL (130-400); RED BLOOD COUNT 5.17 x10^6/uL (3.82-5.3); RED CELL DISTRIBUTION WIDTH 15.9 % (9.6-15.2)
[2019-06-24 11:25] LABS: BASOPHILS # (AUTO) 0.01 x10^3/uL (0-0.1); BASOPHILS % (AUTO) 0 % (0-1); EOSINOPHILS # (AUTO) 0.17 x10^3/uL (0-0.4); EOSINOPHILS % (AUTO) 3 % (1-7); LYMPHOCYTES # (AUTO) 1.17 x10^3/uL (1-3.4); LYMPHOCYTES % (AUTO) 20 % (22-44); MD SCAN; MONOCYTES # (AUTO) 0.66 x10^3/uL (0.2-0.8); MONOCYTES % (AUTO) 11 % (2-9); NEUTROPHILS # (AUTO) 3.94 x10^3/uL (1.8-6.8); NEUTROPHILS % (AUTO) 66 % (42-75)
[2019-06-24 11:26] LABS: ALANINE AMINOTRANSFERASE 37 U/L (12-78); ALBUMIN 3.5 g/dL (3.4-5.0); ANION GAP 10 mmol/L (5-15); CALCIUM 8.9 mg/dL (8.5-10.1); CHLORIDE 100 mmol/L (98-107); CREATININE 1.84 mg/dL (0.55-1.02)
[2019-06-24] MEDS ORDERED: ONDANSETRON 2MG/ML, 2ML ONE (11:29)
[2019-06-24] MEDS ORDERED: ONDANSETRON 2MG/ML, 2ML IVPush ONE (11:30)
[2019-06-24 11:36] LABS: ALKALINE PHOSPHATASE 161 U/L (45-117); BILIRUBIN,TOTAL 2.2 mg/dL (0.2-1.0); TOTAL PROTEIN 7.5 g/dL (6.4-8.2)
--- NOTE | 2019-06-24 11:37 | NUR ---
PIV STARTED AND BLOOD DRAWN. STRAIGHT CATH PERFORMED AND URINE WALKED TO LAB.
[2019-06-24 11:41] LABS: CULTURE INDICATED? NO; MICROSCOPIC NOT IND
--- NOTE | 2019-06-24 11:49 | NUR ---
paged dr baker unr for dr arriola
[2019-06-24 12:00] LABS: ACETONE, SERUM Negative (Negative)
[2019-06-24] MEDS ORDERED: INSULIN REGULAR 100 UNITS/ML, 3ML VIAL SQ-INSULIN ONE (12:00)
[2019-06-24] MEDS ORDERED: LACTULOSE 20 GM/30 ML UDC PO ONE (12:00)
--- NOTE | 2019-06-24 12:13 | NUR ---
unr returned call to dr arriola
[2019-06-24] MEDS ORDERED: INSULIN SINGLE DOSE, ER SQ-INSULIN ONE (12:32)
--- NOTE | 2019-06-24 12:38 | NUR ---
INSULIN GIVEN. [facility] ADMITTING MDs AT BEDSIDE.
--- NOTE | 2019-06-24 13:42 | NUR ---
[facility] TELEPHONE HAND-OFF REPORT GIVEN TO GIOVANNY HOPKINS. PATIENT READY TO GO TO HOSPITAL ROOM.
[2019-06-24 14:17] VITALS: BP 137/70
[2019-06-24] MEDS ORDERED: GLUCAGON 1 MG IM PRN (15:00)
[2019-06-24] MEDS ORDERED: DEXTROSE 4 GM TAB.CHEW PO PRN (15:00)
[2019-06-24] MEDS ORDERED: DEXTROSE 50%, 50ML SYRINGE IVPush PRN (15:00)
[2019-06-24] MEDS: SUCRALFATE 1 GM/10 ML UDC PO SCH ×2 (15:33→21:50)
[2019-06-24] MEDS: LACTATED RINGERS 1,000 ML IV SCH (15:34)
[2019-06-24] MEDS ORDERED: LACTULOSE 20 GM/30 ML UDC PO SCH (16:00)
[2019-06-24] MEDS ORDERED: metFORMIN 500 MG TABLET PO SCH ×2 (17:00→21:00)
[2019-06-24] MEDS: FERROUS GLUCONATE 324 MG TABLET PO SCH (17:54)
[2019-06-24] MEDS: INSULIN LISPRO 100 UNITS/ML, PEN SQ-INSULIN SCH ×2 (17:56→21:51)
[2019-06-24 19:02] VITALS: BP 142/77
[2019-06-24] MEDS: SODIUM CHLORIDE FLUSH 10ML SYR IVF SCH (21:00)
[2019-06-24] MEDS: INSULIN GLARGINE 100 UNITS/ML, PEN SQ-INSULIN SCH (21:51)
[2019-06-25 02:37] VITALS: BP 98/45
[2019-06-25] MEDS: LACTATED RINGERS 1,000 ML IV SCH ×2 (03:46→16:12)
[2019-06-25 05:40] LABS: INTERNATIONAL NORMALIZED RATIO 1.1 (0.93-1.1); PROTHROMBIN TIME 11.5 Seconds (9.6-11.5)
[2019-06-25 05:51] LABS: CHLORIDE 106 mmol/L (98-107)
[2019-06-25 06:02] LABS: ALANINE AMINOTRANSFERASE 34 U/L (12-78); ALBUMIN 3.1 g/dL (3.4-5.0); ALKALINE PHOSPHATASE 140 U/L (45-117); BILIRUBIN,TOTAL 1.5 mg/dL (0.2-1.0); CALCIUM 8.7 mg/dL (8.5-10.1); CREATININE 1.46 mg/dL (0.55-1.02); TOTAL PROTEIN 6.4 g/dL (6.4-8.2)
[2019-06-25 06:29] LABS: MEAN CORPUSCULAR HEMOGLOBIN 26.7 pg (27.0-34.8); MEAN CORPUSCULAR HGB CONC 32.1 g/dL (32.4-35.8); MEAN CORPUSCULAR VOLUME 83.2 fL (80-100); PLATELET COUNT 72 x10^3/uL (130-400); RED BLOOD COUNT 4.34 x10^6/uL (3.82-5.3); RED CELL DISTRIBUTION WIDTH 15.6 % (9.6-15.2)
[2019-06-25 06:36] LABS: BASOPHILS # (AUTO) 0.01 x10^3/uL (0-0.1); BASOPHILS % (AUTO) 0 % (0-1); EOSINOPHILS # (AUTO) 0.09 x10^3/uL (0-0.4); EOSINOPHILS % (AUTO) 3 % (1-7); LYMPHOCYTES # (AUTO) 0.89 x10^3/uL (1-3.4); LYMPHOCYTES % (AUTO) 30 % (22-44); MD SCAN; MONOCYTES # (AUTO) 0.32 x10^3/uL (0.2-0.8); MONOCYTES % (AUTO) 11 % (2-9); NEUTROPHILS # (AUTO) 1.67 x10^3/uL (1.8-6.8); NEUTROPHILS % (AUTO) 56 % (42-75)
[2019-06-25 06:44] VITALS: BP 132/74
[2019-06-25] MEDS: SUCRALFATE 1 GM/10 ML UDC PO SCH ×4 (06:44→21:42)
[2019-06-25 07:11] LABS: ANION GAP 9 mmol/L (5-15)
[2019-06-25 07:21] LABS: HEMOGLOBIN A1C 8.6 % (4.2-6.3)
[2019-06-25] MEDS: INSULIN LISPRO 100 UNITS/ML, PEN SQ-INSULIN SCH ×4 (07:50→21:43)
[2019-06-25] MEDS: FERROUS GLUCONATE 324 MG TABLET PO SCH ×2 (07:51→21:42)
[2019-06-25] MEDS: OMEPRAZOLE 20 MG CAPSULE.DR PO SCH (07:51)
[2019-06-25] MEDS: LACTULOSE 20 GM/30 ML UDC PO PRN ×2 (07:51→21:42)
[2019-06-25] MEDS: FUROSEMIDE 40 MG TABLET PO SCH (07:51)
[2019-06-25] MEDS: SPIRONOLACTONE 100 MG TABLET PO SCH (07:51)
[2019-06-25] MEDS: SODIUM CHLORIDE FLUSH 10ML SYR IVF SCH ×2 (07:51→21:00)
[2019-06-25] MEDS ORDERED: PROPRANOLOL 10 MG TABLET PO SCH (09:00)
[2019-06-25] MEDS ORDERED: HYDROCHLOROTHIAZIDE 12.5 MG CAPSULE PO SCH (09:00)
[2019-06-25 12:55] VITALS: BP 134/77
[2019-06-25 18:41] VITALS: BP 137/55
[2019-06-25] MEDS: INSULIN GLARGINE 100 UNITS/ML, PEN SQ-INSULIN SCH (21:43)
[2019-06-26 00:56] VITALS: BP 139/61
[2019-06-26] MEDS: LACTATED RINGERS 1,000 ML IV SCH (07:00)
[2019-06-26 07:22] LABS: ANION GAP 9 mmol/L (5-15); CALCIUM 8.8 mg/dL (8.5-10.1); CHLORIDE 104 mmol/L (98-107); CREATININE 1.42 mg/dL (0.55-1.02)
[2019-06-26 07:48] VITALS: BP 100/65
[2019-06-26] MEDS: SUCRALFATE 1 GM/10 ML UDC PO SCH ×4 (07:50→20:48)
[2019-06-26] MEDS: LACTULOSE 20 GM/30 ML UDC PO PRN ×2 (07:50→11:31)
[2019-06-26] MEDS: FERROUS GLUCONATE 324 MG TABLET PO SCH ×2 (07:51→20:48)
[2019-06-26] MEDS: SODIUM CHLORIDE FLUSH 10ML SYR IVF SCH (07:51)
[2019-06-26] MEDS: OMEPRAZOLE 20 MG CAPSULE.DR PO SCH (07:51)
[2019-06-26] MEDS: SPIRONOLACTONE 100 MG TABLET PO SCH (07:51)
[2019-06-26] MEDS: FUROSEMIDE 40 MG TABLET PO SCH (07:51)
[2019-06-26] MEDS: INSULIN LISPRO 100 UNITS/ML, PEN SQ-INSULIN SCH ×4 (07:51→20:49)
[2019-06-26 15:01] VITALS: BP 128/76
[2019-06-26 19:44] VITALS: BP 132/80
[2019-06-26] MEDS ORDERED: INSULIN GLARGINE 100 UNITS/ML, PEN SQ-INSULIN SCH (21:00)
[2019-06-27 01:50] VITALS: BP 126/74
[2019-06-27 05:40] LABS: ANION GAP 9 mmol/L (5-15); CALCIUM 8.5 mg/dL (8.5-10.1); CHLORIDE 104 mmol/L (98-107); CREATININE 1.42 mg/dL (0.55-1.02)
[2019-06-27 06:43] VITALS: BP 145/75
[2019-06-27] MEDS: SUCRALFATE 1 GM/10 ML UDC PO SCH ×3 (07:00→15:11)
[2019-06-27] MEDS: LACTULOSE 20 GM/30 ML UDC PO SCH ×2 (07:43→16:00)
[2019-06-27] MEDS: FERROUS GLUCONATE 324 MG TABLET PO SCH (07:43)
[2019-06-27] MEDS: FUROSEMIDE 40 MG TABLET PO SCH (07:43)
[2019-06-27] MEDS: SPIRONOLACTONE 100 MG TABLET PO SCH (07:43)
[2019-06-27] MEDS: OMEPRAZOLE 20 MG CAPSULE.DR PO SCH (07:43)
[2019-06-27] MEDS: INSULIN LISPRO 100 UNITS/ML, PEN SQ-INSULIN SCH ×3 (07:44→16:00)
[2019-06-27] MEDS ORDERED: INSULIN GLARGINE 100 UNITS/ML, PEN SQ-INSULIN SCH (09:00)
[2019-06-27] MEDS ORDERED: INSU100I13 SQ-INSULIN (12:01)
[2019-06-27] MEDS ORDERED: LACT20SO13 PO (12:01)
[2019-06-27 13:08] VITALS: BP 98/63
== END 2019-06-27 17:57 | DRG 432 ==
LOC: ED 11:47 → EDIP 12:13 → INTOOBSV 12:13 → 3NE 13:58 → OBSVTOIN 06-25 13:51
PROVIDERS: ADMIT Family Medicine; ATTEND Family Medicine
DX: K74.60 Unspecified cirrhosis of liver (principal); K72.00 Acute and subacute hepatic failure without coma; G93.41 Metabolic encephalopathy; E87.1 Hypo-osmolality and hyponatremia; K76.6 Portal hypertension; E46 Unspecified protein-calorie malnutrition; I85.10 Secondary esophageal varices without bleeding; N17.9 Acute kidney failure, unspecified; E86.0 Dehydration; I12.9 Hypertensive chronic kidney disease with stage 1 through stage 4 chronic kidney disease, or unspecified chronic kidney disease; D69.6 Thrombocytopenia, unspecified; D64.9 Anemia, unspecified; E11.22 Type 2 diabetes mellitus with diabetic chronic kidney disease; E11.65 Type 2 diabetes mellitus with hyperglycemia; Z60.2 Problems related to living alone; N18.9 Chronic kidney disease, unspecified; Z66 Do not resuscitate; Z79.4 Long term (current) use of insulin; Z87.891 Personal history of nicotine dependence; Z90.710 Acquired absence of both cervix and uterus
CPT/HCPCS: 36415; 70450; 71045; 80048; 80053; 81003; 82010; 82140; 82570; 82803; 82962; 83036; 83735; 84300; 84443; 85025; 85610; 93005; 96374; 96375; 99291; G0378; J2405; J1815; J7030; J7120